=== PATIENT | male | born 1955 | race Caucasian/White ===

== ENCOUNTER 2018-12-17 13:21 | Outpatient (CLI) | payer OTHER ==
[~2018-12-17 13:21] MED LIST: Iopamidol-370 76% 500 ML 1 ML ONE
--- NOTE | 2018-12-17 14:37 | CT ---
ABDOMEN CT WITH AND WITHOUT CONTRAST: PELVIC CT WITH AND WITHOUT CONTRAST: HISTORY: Hematuria. COMPARISON: None. TECHNIQUE: Abdomen and pelvic CT is performed with and without contrast following urogram protocol. Coronal refo rmatted images are submitted for interpretation. FINDINGS: Lung bases: Dependent atelectatic changes. Liver: Appropriate enhancement. No enhancing masses. Spleen: Appropriate enhancement. Pancreas: Appropriate enhancement. Adrenal glands: Symmetric enhancement. Lymph nodes: No gastrohepatic, retrocrural or periportal lymphadenopathy. Portal vein: Patent. Gallbladder: Unremarkable. Kidneys: Bilaterally no hydronephrosis, nephrolithiasis or perinephric fat stranding. Bilateral urete rs have a normal caliber. No hydroureter, periureteral fat stranding or ureterolithiasis. Hypodensities in the left renal pelvis have an attenuation coefficient of 19 Hounsfield units on the noncontrast study. Exophytic hypodensity in the mid left renal cortex has an attenuation coefficient of 28 Hounsfield units. Postcontrast images demonstrate symmetric enhancement the kidneys . The pelvic hypodensity has an attenuation coefficient of 22 Hounsfield units. The exophytic lesion has an attenuation correction of 26 Hounsfield units, and measures 3.0 x 2.4 cm. There is a 1. 3 cm hypodensity in the lower pole the left kidney, without associated enhancement. Hypodensity in the right renal pelvis has an attenuation coefficient of 22 Hounsfield units on the noncontrast on th e arterial phase image. Subcentimeter hypodensity in the lower pole right kidney has a noncontrast attenuation coefficient of 23 Hounsfield units and postcontrast attenuation coefficient of 33 Hounsfi eld units. On the excretory phase, this lesion has an attenuation coefficient of 35 Hounsfield units. Excretion phase demonstrates symmetric excretion into a nondistended, nondilated intra and ext ra renal collecting system. The hypodensities in the left or right renal pelvis are compatible with bilateral parapelvic cysts. Mesentery: No mass, lymphadenopathy, free air or free fluid. A few scattered nonspecific mesenteric l ymph nodes. Alimentary canal: Limited evaluation due to lack of oral contrast administration. No evidence of maureen l obstruction. The ileocecal junction is normal. Normal caliber appendix. Scattered fecal material in a nondistended/nondilated colon. Anterior abdominal wall: Intra-abdominal wall hernia containing mesenteric fat. Defect measures [address] PELVIS: No mass, nephropathy, free air or free fluid. There is air in the nondependent portion of the urinary bladder. Contrast opacifies the dependent portion the bladder without evidence of filling defect. No lytic or blastic lesions in the osseous structures. IMPRESSION: Bilateral complex renal cortical cysts. There are bilateral parapelvic cysts. Follow-up CT in 6 month s is recommended. Transcribed Date/Time: 12/17/2018 3:04 PM
== END 2018-12-17 13:22 | disposition home or self-care (01) ==
LOC: BICCT 13:21
PROVIDERS: ATTEND Urology
DX: R31.0 Gross hematuria (principal); N28.1 Cyst of kidney, acquired
CPT/HCPCS: 74178; 82565; Q9967